=== PATIENT | female | born 1990 | race Two or more races ===

== ENCOUNTER 2020-04-01 15:20 | Inpatient (IN) | payer OTHER ==
[2020-04-01] MEDS ORDERED: CITRIC ACID/SODIUM CITRATE 30 ML UNIT-DOSE CUP PO ONE ×2 (15:38→16:15)
[2020-04-01] MEDS ORDERED: ELECTROLYTE-148 SOLN 1,000 ML IV SCH ×2 (15:45→16:45)
--- NOTE | 2020-04-01 15:46 | HP ---
Past Medical History - Admission Chief Complaint: previous myomectomy at 37 weeks with contractions. History Source: Patient Limitations to Obtaining History: No Limitations - Past Medical History ...: 2 ...Para: 1 ...Living Children: 1 ...LMP: 07/11/19 ... Weeks Gestation by Dates: 37 ...EDC by Dates: 04/16/20 Heme/Onc: Yes: Myeloproliferative Synd - Past Surgical History Past Surgical History: Yes: None Hx Myomectomy: Yes Hx Transabdominal Cerclage: No - Smoking History Smoking history: Never smoked Have you smoked in the past 12 months: No - Alcohol/Substance Use Hx Alcohol Use: No History of Substance Use: reports: None - Social History Usual Living Arrangement: Yes: With Spouse Do you think of yourself as: Straight/Heterosexual ADL: Independent History of Recent Travel: No Home Medications - Allergies Allergies/Adverse Reactions: Allergies Allergy/AdvReac Type Severity Reaction Status Date / Time No Known Allergies Allergy Verified 04/01/20 15:45 Review of Systems - Review of Systems Constitutional: reports: No Symptoms Eyes: reports: No Symptoms HENT: reports: No Symptoms Neck: reports: No Symptoms Cardiovascular: reports: No Symptoms Respiratory: reports: No Symptoms Gastrointestinal: reports: No Symptoms Genitourinary: reports: No Symptoms Breasts: reports: No Symptoms Reported Musculoskeletal: reports: No Symptoms Integumentary: reports: No Symptoms Neurological: reports: No Symptoms Endocrine: reports: No Symptoms Hematology/Lymphatic: reports: No Symptoms Psychiatric: reports: No Symptoms Physical Exam - Maternity Constitutional: Yes: Well Nourished Eyes: Yes: WNL HENT: Yes: WNL Neck: Yes: WNL Cardiovascular: Yes: WNL Lungs: Clear to auscultation Breast(s): Yes: WNL - Abdominal Exam/OB Number of Fetuses: Single Presentation: Vertex Contractions: Yes Regularity: Irregular Intensity: Mild/Mod Monitor Mode: External Category: I Accelerations: Uniform Decelerations: None - Vaginal Exam/OB Vaginal Bleeding: No Speculum Exam: No Amniotic Membrane Status: Intact Presentation: Vertex/Position Station: -3 - Physical Exam Musculoskeletal: Yes: Back Pain Assessment/Plan IUP at 37 weeks previous myomectomy plan section
[2020-04-01] MEDS ORDERED: ELECTROLYTE-148 SOLN 500 ML IV ONE (16:15)
[2020-04-01 16:44] VITALS: BMI 33.3
[2020-04-01 17:13] LABS: BASO % 0.3 % (0-2.0); EOS % 0.6 % (0-4.5); HEMATOCRIT 43.4 % (32.4-45.2); HEMOGLOBIN 14.4 GM/dL (10.7-15.3); LYMPH % 17.9 % (8-40); MCH 31.8 pg (25.7-33.7); MCHC 33.1 g/dl (32.0-36.0); MEAN CELL VOLUME 95.9 fl (80-96); MEAN PLT VOLUME 9.2 fl (7.5-11.1); MONO % 7.7 % (3.8-10.2); NEUT % 73.5 % (42.8-82.8); PLATELET COUNT 212 K/MM3 (134-434); RBC 4.52 M/mm3 (3.60-5.2); RDW 14.1 % (11.6-15.6); WHITE BLOOD COUNT 9.9 K/mm3 (4.0-10.0)
[2020-04-01 17:27] LABS: INR 0.9 (0.83-1.09); PROTHROMBIN TIME (PATIENT) 11.1 SEC (9.7-13.0)
[2020-04-01 17:29] LABS: ACTIVATED PTT 27.3 SECONDS (25.2-36.5)
[2020-04-01 17:37] LABS: POTASSIUM 3.7 mmol/L (3.5-5.1)
[2020-04-01 17:39] LABS: BLOOD UREA NITROGEN 7.4 mg/dL (7-18); CALCIUM 9.4 mg/dL (8.5-10.1)
[2020-04-01 17:42] LABS: CREATININE 0.6 mg/dL (0.55-1.3)
[2020-04-01] MEDS ORDERED: morphine SULFATE/PF 0.5 MG/ML (2cc Syringe - QUVA) ONE (20:29)
[2020-04-01] MEDS ORDERED: morphine SULFATE/PF 0.5 MG/ML (2cc Syringe - QUVA) EP ONE (20:40)
[2020-04-01] MEDS ORDERED: ceFAZolin SODIUM 1 GM VIAL ONE (20:42)
[2020-04-01] MEDS ORDERED: OXYTOCIN 10 UNITS/ML VIAL ONE (20:47)
[2020-04-01] MEDS ORDERED: KETOROLAC TROMETHAMINE 30 MG/1 ML VIAL ONE (20:47)
[2020-04-01] MEDS ORDERED: METHYLERGONOVINE MALEATE 0.2 MG/1 ML AMP IM PRN (21:10)
--- NOTE | 2020-04-01 21:10 | OP ---
Operative Note - Note: Operative Date: 04/01/20 Pre-Operative Diagnosis: previous abdominal myomectomy Operation: primary section Findings: baby girl Post-Operative Diagnosis: Same as Pre-op Surgeon: Bel Nava Anesthesiologist/ASSOCIATE LOAN OFFICER: Bro Ronquillo Anesthesia: Spinal Specimens Removed: placenta membranes Estimated Blood Loss (mls): 600 Operative Report Dictated: Yes
[2020-04-01] MEDS ORDERED: ONDANSETRON 4 MG/2 ML VIAL IVPUSH PRN (21:33)
[2020-04-01] MEDS ORDERED: ACETAMINOPHEN 1000 MG/100 ML VIAL (NON FORMULARY) IVPB ONE (21:34)
[2020-04-01] MEDS ORDERED: OXYTOCIN 20 UNITS in 0.9% NS 20 UNIT/1,000 ML INFUS.BAG IV ONE (21:42)
[2020-04-02] MEDS: KETOROLAC TROMETHAMINE 30 MG/1 ML VIAL IVPUSH PRN ×2 (00:56→09:29)
[2020-04-02 08:47] LABS: BASO % 0.3 % (0-2.0); EOS % 0.5 % (0-4.5); HEMATOCRIT 35.8 % (32.4-45.2); HEMOGLOBIN 11.9 GM/dL (10.7-15.3); LYMPH % 11.9 % (8-40); MCH 31.4 pg (25.7-33.7); MCHC 33.1 g/dl (32.0-36.0); MEAN CELL VOLUME 94.6 fl (80-96); MEAN PLT VOLUME 8.9 fl (7.5-11.1); MONO % 8.2 % (3.8-10.2); NEUT % 79.1 % (42.8-82.8); PLATELET COUNT 182 K/MM3 (134-434); RBC 3.79 M/mm3 (3.60-5.2); RDW 14.2 % (11.6-15.6); WHITE BLOOD COUNT 12.3 K/mm3 (4.0-10.0)
--- NOTE | 2020-04-02 09:40 | OP ---
DATE OF OPERATION: 04/01/2020 PREOPERATIVE DIAGNOSIS: Previous myomectomy. POSTOPERATIVE DIAGNOSIS: Previous myomectomy. PROCEDURE PERFORMED: Primary section through Pfannenstiel abdominal and low transverse uterine incisions. SURGEON: Rudy Perdomo MD VEGETABLE TIER: NERI Alanis. No MD available. ESTIMATED BLOOD LOSS: 600 mL. PROCEDURE AND FINDINGS: After the successfully induction of spinal anesthesia, the patient was prepped and draped in the dorsal supine position. A Pfannenstiel abdominal incision was made and was carried down to the level of the fascia. The fascia was identified and entered. The peritoneum was identified and entered. Upon entering the peritoneal cavity, a low transverse uterine incision was made, and a baby girl was delivered to the forensic analyst in attendance. Following this, placenta and membranes were removed. Endometrial contents were cleaned using a dry lap pad. Then the uterine incision was identified with T-clamps, and closed using No. 1 Vicryl in a continuous locking stitch. There was excellent hemostasis after this procedure. Then the gutters were cleaned. There was excellent hemostasis. The area was again observed. The case was then terminated once there was noted to be excellent hemostasis. The fascia was closed using No. 1 Vicryl in a continuous stitch. The skin incision was closed using subcuticular finished with 4-0 Vicryl on a Neto needle. RUDY PERDOMO MD /[id number]
--- NOTE | 2020-04-02 15:12 | PN ---
Post Progress Note - Subjective Subjective: feels ok Post Day: 1 Type of Delivery: Primary C/S Vital Signs: Vital Signs Temperature 98.3 F 04/02/20 14:00 Pulse Rate 80 04/02/20 14:00 Respiratory Rate 20 04/02/20 14:00 Blood Pressure 116/74 04/02/20 14:00 O2 Sat by Pulse Oximetry (%) 97 04/02/20 14:00 Breast Exam: Yes: Soft Uterus: Yes: Fundus Firm Incision: Yes: Dressing dry and intact Abdomen/GI: Yes: Abdomen soft Lochia: Yes: Rubra Lochia, amount: Small Extremities: Yes: Calves non-tender - Labs Labs: CBC WBC 12.3 K/mm3 (4.0-10.0) H 04/02/20 07:42 RBC 3.79 M/mm3 (3.60-5.2) 04/02/20 07:42 Hgb 11.9 GM/dL (10.7-15.3) 04/02/20 07:42 Hct 35.8 % (32.4-45.2) D 04/02/20 07:42 MCV 94.6 fl (80-96) 04/02/20 07:42 MCH 31.4 pg (25.7-33.7) 04/02/20 07:42 MCHC 33.1 g/dl (32.0-36.0) 04/02/20 07:42 RDW 14.2 % (11.6-15.6) 04/02/20 07:42 Plt Count 182 K/MM3 (134-434) 04/02/20 07:42 MPV 8.9 fl (7.5-11.1) 04/02/20 07:42 Absolute Neuts (auto) 9.8 K/mm3 (1.5-8.0) H 04/02/20 07:42 Neutrophils % 79.1 % (42.8-82.8) 04/02/20 07:42 Neutrophils % (Manual) 65.7 % (42.8-82.8) 04/01/20 16:45 Band Neutrophils % 4.0 % 04/01/20 16:45 Lymphocytes % 11.9 % (8-40) D 04/02/20 07:42 Lymphocytes % (Manual) 24.2 % (8-40) 04/01/20 16:45 Monocytes % 8.2 % (3.8-10.2) 04/02/20 07:42 Monocytes % (Manual) 5 % (3.8-10.2) 04/01/20 16:45 Eosinophils % 0.5 % (0-4.5) 04/02/20 07:42 Eosinophils % (Manual) 0.0 % (0-4.5) 04/01/20 16:45 Basophils % 0.3 % (0-2.0) 04/02/20 07:42 Basophils % (Manual) 0.0 % (0-2.0) 04/01/20 16:45 Myelocytes % (Man) 0 % (0-2) 04/01/20 16:45 Promyelocytes % (Man) 0 % (0-2) 04/01/20 16:45 Blast Cells % (Manual) 0 % (0-0) 04/01/20 16:45 Nucleated RBC % 0 % (0-0) 04/02/20 07:42 Metamyelocytes 0 % (0-2) 04/01/20 16:45 Assessment/Plan PO day 1 CS for prev myomectomy routine care
[2020-04-02] MEDS: IBUPROFEN 600 MG TABLET (FP) PO PRN (17:57)
[2020-04-02] MEDS: SIMETHICONE 80 MG TAB.CHEW (FP) PO PRN (17:57)
[2020-04-02] MEDS ORDERED: BISACODYL 10 MG SUPP.RECT RC PRN (21:10)
[2020-04-03] MEDS: IBUPROFEN 600 MG TABLET (FP) PO PRN ×3 (06:31→18:09)
[2020-04-03] MEDS: SIMETHICONE 80 MG TAB.CHEW (FP) PO PRN ×3 (06:32→18:09)
--- NOTE | 2020-04-03 11:17 | PN ---
Post Progress Note - Subjective Subjective: Doing well Voiding Tolerating diet + flatus Post Day: 2 Type of Delivery: Primary C/S Vital Signs: Vital Signs Temperature 98.5 F 04/02/20 22:00 Pulse Rate 84 04/02/20 22:00 Respiratory Rate 18 04/03/20 00:00 Blood Pressure 121/68 04/02/20 22:00 O2 Sat by Pulse Oximetry (%) 97 04/02/20 14:00 Breast Exam: Yes: Soft Uterus: Yes: Fundus Firm Incision: Yes: Sutures intact Abdomen/GI: Yes: Abdomen soft Lochia: Yes: Rubra Lochia, amount: Small Extremities: Yes: Calves non-tender Activity: Ambulating - Labs Labs: CBC WBC 12.3 K/mm3 (4.0-10.0) H 04/02/20 07:42 RBC 3.79 M/mm3 (3.60-5.2) 04/02/20 07:42 Hgb 11.9 GM/dL (10.7-15.3) 04/02/20 07:42 Hct 35.8 % (32.4-45.2) D 04/02/20 07:42 MCV 94.6 fl (80-96) 04/02/20 07:42 MCH 31.4 pg (25.7-33.7) 04/02/20 07:42 MCHC 33.1 g/dl (32.0-36.0) 04/02/20 07:42 RDW 14.2 % (11.6-15.6) 04/02/20 07:42 Plt Count 182 K/MM3 (134-434) 04/02/20 07:42 MPV 8.9 fl (7.5-11.1) 04/02/20 07:42 Absolute Neuts (auto) 9.8 K/mm3 (1.5-8.0) H 04/02/20 07:42 Neutrophils % 79.1 % (42.8-82.8) 04/02/20 07:42 Neutrophils % (Manual) 65.7 % (42.8-82.8) 04/01/20 16:45 Band Neutrophils % 4.0 % 04/01/20 16:45 Lymphocytes % 11.9 % (8-40) D 04/02/20 07:42 Lymphocytes % (Manual) 24.2 % (8-40) 04/01/20 16:45 Monocytes % 8.2 % (3.8-10.2) 04/02/20 07:42 Monocytes % (Manual) 5 % (3.8-10.2) 04/01/20 16:45 Eosinophils % 0.5 % (0-4.5) 04/02/20 07:42 Eosinophils % (Manual) 0.0 % (0-4.5) 04/01/20 16:45 Basophils % 0.3 % (0-2.0) 04/02/20 07:42 Basophils % (Manual) 0.0 % (0-2.0) 04/01/20 16:45 Myelocytes % (Man) 0 % (0-2) 04/01/20 16:45 Promyelocytes % (Man) 0 % (0-2) 04/01/20 16:45 Blast Cells % (Manual) 0 % (0-0) 04/01/20 16:45 Nucleated RBC % 0 % (0-0) 04/02/20 07:42 Metamyelocytes 0 % (0-2) 04/01/20 16:45 Assessment/Plan s/p primary delivery post op day 2 prior myomectomy\ doing well regular diet pain management ambulation discharge tomorrow
[2020-04-03 23:59] VITALS: TEMP 98.5
[2020-04-04] MEDS: IBUPROFEN 600 MG TABLET (FP) PO PRN ×2 (02:10→11:30)
[2020-04-04] MEDS: SIMETHICONE 80 MG TAB.CHEW (FP) PO PRN ×2 (02:10→11:29)
[2020-04-04 09:14] VITALS: BP 119/60; PULSE 68
[2020-04-04 09:44] LABS: BASO % 0.4 % (0-2.0); EOS % 3.1 % (0-4.5); HEMOGLOBIN 10.7 GM/dL (10.7-15.3); LYMPH % 21.3 % (8-40); MCH 31.7 pg (25.7-33.7); MCHC 33.5 g/dl (32.0-36.0); MEAN CELL VOLUME 94.5 fl (80-96); MEAN PLT VOLUME 8.8 fl (7.5-11.1); MONO % 8.7 % (3.8-10.2); NEUT % 66.5 % (42.8-82.8); PLATELET COUNT 192 K/MM3 (134-434); RBC 3.39 M/mm3 (3.60-5.2); RDW 13.8 % (11.6-15.6); WHITE BLOOD COUNT 7.1 K/mm3 (4.0-10.0)
--- NOTE | 2020-04-04 10:46 | PATH ---
Surgical Pathology Report Patient Name: AUDI STEINBERG Med. Rec. #: [id number] /Age/Gender: 1990 (Age: 30) / F Account: [id number] Location: [facility] OBS/CLAIMS COUNSEL Taken: 04/01/2020 Received: 04/02/2020 Reported: 04/04/2020 Physicians: Bel Nava M.D. Specimen(s) Received PLACENTA Clinical History , 37.6 gestational weeks Final Diagnosis PLACENTA: THIRD TRIMESTER PLACENTA WITH FOCAL INTRAPARENCHYMAL HEMORRHAGE (1.6CM IN GREATEST DIMENSION). TRIVASCULAR CORD. MEMBRANES WITH NO DIAGNOSTIC ABNORMALITIES. Electronically Signed Kath Boykin M.D. Gross Description The specimen is received fresh labeled placenta and is a 466 gram, 24.0 x 15.0 x 2.0 cm. placenta with attached membranes and umbilical cord. The attached membranes are alexandra, translucent with focal opacities and insert marginally. The umbilical cord measures 23 cm. in length and averages 0.9 cm. in diameter. The cord inserts eccentrically, 4 cm. to the nearest margin. No true knots or strictures are identified. Cut surface of the umbilical cord reveals 3 vessels. The surface is andino-blue with minimal fibrin deposition and appropriate caliber vessels. The maternal surface is red-brown with focal defects. Sectioning reveals a 1.6 cm in greatest dimension hemorrhagic intraparenchymal lesion. The remaining placental parenchyma is red-brown and spongy. Balance Clerk sections are submitted in three cassettes as follows: 1-membrane roll and umbilical cord; 2-lesion; 6-kfsa-cuppemjau section of placenta. 04/02/[address] [facility]04/02/2020
--- NOTE | 2020-04-04 11:01 | DS ---
Physical Exam-RETAIL CUSTOMER SERVICE REPRESENTATIVE Vital Signs: Vital Signs Temperature 98.5 F 04/04/20 09:10 Pulse Rate 68 04/04/20 09:10 Respiratory Rate 20 04/04/20 09:10 Blood Pressure 119/60 04/04/20 09:10 O2 Sat by Pulse Oximetry (%) 99 04/04/20 09:10 Constitutional: Yes: No Distress, Calm Cardiovascular: Yes: Regular Rate and Rhythm Respiratory: Yes: Regular, CTA Bilaterally Gastrointestinal: Yes: Normal Bowel Sounds, Soft Renal/: Yes: WNL Pelvis: Yes: WNL External Genitalia: Yes: Normal Internal Exam Deferred: Yes ....Post : Yes: Uterus firm, Uterus non-tender Breast(s): Yes: WNL Musculoskeletal: Yes: WNL Extremities: Yes: WNL Edema: No Wound/Incision: Yes: Clean/Dry, Well Approximated, Sutures Intact, Open to air Neurological: Yes: Alert, Oriented ...Motor Strength: WNL Psychiatric: Yes: Alert, Oriented Labs: CBC, BMP 04/04/20 09:07 04/01/20 16:45 Delivery - Delivery Type of Anesthesia: Spinal EBL (cc): 600 Delivery, Single - Stages of Labor Date of Delivery: 04/01/20 Time of Delivery: 20:51 Time Placenta Delivered: 20:52 - Condition of Risk Specialist/Senior Analyst Developer Present: Yes Name: Madeline Jeffries Infant Gender: Female Weight: 3.118 kg Position: Left, OA Total Hours ROM (Hrs/Mins): 1m - 5 Minutes Total Score: 9 1 Minute Total Score: 9 - [place] Feeding Plan Initial Plan: Exclusive throughout hospitalization Discharge Summary Problems reviewed: Yes Reason For Visit: Procedures: Principal: C/S Hospital Course: uneventful Plan of Treatment: discharge home, f/u with OB in 1 week, continue PNV, motrin PRN, PPH and preeclampsia precautions discussed, wound hygiene advised, pelvic rest x 6 weeks Condition: Good - Instructions - Home Medications Comprehensive Discharge Medication List: Ambulatory Orders Vitamins (Sjr) - 1 tab PO DAILY 04/01/20
== END 2020-04-04 13:10 | disposition home or self-care (01) | DRG 540 ==
LOC: JLDR 15:20 → J3W 23:10
PROVIDERS: ADMIT Specialist; ATTEND Specialist
PROC: 10D00Z1 Extraction of Products of Conception, Low, Open Approach (ICD-10-PCS; principal; 2020-04-01)
DX: O34.29 Maternal care due to uterine scar from other previous surgery (principal); O99.824 Streptococcus B carrier state complicating childbirth; Z85.79 Personal history of other malignant neoplasms of lymphoid, hematopoietic and related tissues; Z3A.37 37 weeks gestation of pregnancy; Z37.0 Single live birth
CPT/HCPCS: 36415; 80048; 85025; 85610; 85730; 86780; 86850; 86900; 86901; 87389; 88307-TC; C9803; U0003